=== PATIENT | female | born 1970 | race African-American/Black ===

== ENCOUNTER 2017-07-06 10:16 | Emergency (ER) | payer MEDICAID, OTHER ==
[~2017-07-06] VITALS: Ht 177.8 cm; Wt 100.0 kg
[2017-07-06] MEDS ORDERED: SODIUM CHLORIDE 0.9% 1,000 ML IV ONE (10:20)
[2017-07-06] MEDS ORDERED: ONDANSETRON HCL 4MG/2ML VIAL IV STA (10:20)
[2017-07-06] MEDS ORDERED: NAPR220T66 PO (10:21)
[2017-07-06 11:09] LABS: BASOPHILS % 0.5 % (0.0-2.0); LYMPHOCYTES % 24.6 % (20.0-50.0); MEAN CORPUSCULAR HEMOGLOBIN 26.7 pg (28.0-32.0); MEAN CORPUSCULAR VOLUME 83.7 fL (81.0-99.0); MEAN PLATELET VOLUME 8.4 fl (7.4-10.4); MONOCYTES % 12.6 % (2.0-8.0); NEUTROPHILS % 60.3 % (40.0-76.0); PLATELET 290 x1000/uL (130-400); RED BLOOD CELL COUNT 2.51 mill/uL (4.2-5.4); RED CELL DISTRIBUTION WIDTH 15.1 % (11.6-14.6)
[2017-07-06 11:14] LABS: CHLORIDE 112 mEq/L (98-107)
[2017-07-06 11:17] LABS: HEMOGLOBIN. 6.7 g/dL (12.0-16.0); INR 1.1
[2017-07-06] MEDS ORDERED: PANTOPRAZOLE SODIUM 40 MG/VIAL IV ONE (11:45)
[2017-07-06 14:11] VITALS: BP 127/77
== END 2017-07-06 14:10 | disposition short-term general hospital (02) ==
LOC: ER 10:25
DX: R55 Syncope and collapse (principal); K92.2 Gastrointestinal hemorrhage, unspecified; D64.9 Anemia, unspecified; R00.0 Tachycardia, unspecified; F17.200 Nicotine dependence, unspecified, uncomplicated
CPT/HCPCS: 36415; 36430; 71045; 80053; 85025; 85610; 86850; 86900; 86901; 86920; 93005; 96361; 96374; 96375; 99291; C9113; J2405; J7030; P9016